=== PATIENT | male | born 1985 ===

== ENCOUNTER 2018-01-11 12:38 | Emergency (ER) | payer BC ==
[2018-01-11 13:05] VITALS: BP 101/60; PULSE 74; RESP 20; TEMP 98.2; O2SAT 100
--- NOTE | 2018-01-11 13:51 | C.PDOC ---
History Of Present Illness Pt c/o left facial weakness. Time Seen by Provider: 01/11/18 13:09 Chief Complaint (Nursing): Weakness/Neurological Deficit History Per: Patient Onset/Duration Of Symptoms: Days (2) Current Symptoms Are (Timing): Still Present Fall Associated With With Symptoms: No Severity: Moderate Recent travel outside of the [place]: Not to an Endemic Area Additional History Per: Prior Records - Symptoms Of CVA Associated Symptoms: denies: Impaired Speech, Seizure Activity, New Vision Deficit(Left), New Vision Deficit(Right), Decreased Ability To Walk, New Confusion Character Of Deficits: Left: Weakness, Face: Weakness Recent Aspirin Use: No Current Coumadin Use?: No Recent Head Trauma: No Past Medical History Reviewed: Historical Data, Nursing Documentation, Vital Signs Vital Signs: Last Vital Signs Temp 98.2 F 01/11/18 13:00 Pulse 74 01/11/18 13:00 Resp 20 01/11/18 13:00 BP 101/60 01/11/18 13:00 Pulse Ox 100 01/11/18 13:00 - Medical History PMH: No Chronic Diseases Surgical History: No Surg Hx Family History: States: Unknown Family Hx - Social History Hx Alcohol Use: No Hx Substance Use: No - Immunization History Hx Tetanus Toxoid Vaccination: No Hx Influenza Vaccination: No Hx Pneumococcal Vaccination: No Review Of Systems Except As Marked, All Systems Reviewed And Found Negative. Constitutional: Negative for: Fever, Weakness ENT: Negative for: Ear Pain, Ear Discharge, Throat Pain Cardiovascular: Negative for: Chest Pain Respiratory: Negative for: Shortness of Breath Gastrointestinal: Negative for: Vomiting, Abdominal Pain Musculoskeletal: Negative for: Neck Pain Skin: Negative for: Rash Neurological: Positive for: Weakness (left face). Negative for: Numbness, Incoordination, Change in Speech, Confusion, Seizures, Altered Mental Status, Dizziness Physical Exam - Physical Exam Appears: Non-toxic, No Acute Distress Skin: Normal Color, Warm, Dry, No Rash Head: Atraumatic, Normacephalic Eye(s): bilateral: PERRL, EOMI Ear(s): Bilateral: Normal Oral Mucosa: Moist, No Drooling, No Trismus Neck: Normal ROM, Supple Lymphatic: No Adenopathy Cardiovascular: Rhythm Regular Respiratory: Normal Breath Sounds, No Accessory Muscle Use Gastrointestinal/Abdominal: Soft, No Tenderness Extremity: Normal ROM Neurological/Psych: Oriented x3, Normal Speech, Normal Cognition, No Cerebellar Signs, Normal Motor, Normal Sensation Other Neurological Findings: Facial Palsy (left), No Forehead Sparing Extremity: Right: No Drift, Left: No Drift, Upper: No Drift, Lower: No Drift ED Course And Treatment O2 Sat by Pulse Oximetry: 100 Pulse Ox Interpretation: Normal Disposition Counseled Patient/Family Regarding: Diagnosis, Need For Followup, Rx Given - Disposition Referrals: Tristin Mensah MD [Staff Provider] - Disposition: HOME/ ROUTINE Disposition Time: 13:52 Condition: STABLE Additional Instructions: Follow up with a primary doctor or a Neurologist within 4-5 days for further evaluation and treatment, including to be checked for Lyme disease. Return to the ER if you develop numbness, weakness in arms or legs, fever, rash, worsening of symptoms or if you have any other concerns. Prescriptions: Dextran 70/Hypromellose [Artificials Tears Drops] 1 - 2 drop OS QID #1 bottle predniSONE [predniSONE Tab] 3 tab PO DAILY #15 tab Instructions: Melo's Palsy (DC) - Clinical Impression Clinical Impression: Left-sided Melo's palsy
== END 2018-01-11 14:05 | disposition home or self-care (01) ==
LOC: C.ER 12:38
DX: G51.0 Bell's palsy (principal)

== ENCOUNTER 2018-09-30 11:25 | Emergency (ER) | payer BC ==
[2018-09-30 11:43] VITALS: RESP 18; O2SAT 99
--- NOTE | 2018-09-30 12:36 | C.PDOC ---
History Of Present Illness 32 year old male presents to the emergency department with complaints of dizziness which is described as the room spinning and is associated with nausea and vomiting since this morning. Patient states that he has not experienced such symptoms before. He denies trauma, vision changes, numbness or weakness, and abdominal pain. Time Seen by Provider: 09/30/18 12:07 Chief Complaint (Nursing): Headache History Per: Patient History/Exam Limitations: no limitations Onset/Duration Of Symptoms: Hrs Current Symptoms Are (Timing): Still Present Associated Symptoms: Blurred Vision, Nausea, Vomiting Recent travel outside of the [place]: No Past Medical History Reviewed: Historical Data, Nursing Documentation, Vital Signs Vital Signs: Last Vital Signs Temp 98.4 F 09/30/18 11:35 Pulse 52 L 09/30/18 11:35 Resp 18 09/30/18 11:35 BP 108/71 09/30/18 11:35 Pulse Ox 99 09/30/18 11:35 - Medical History PMH: No Chronic Diseases Surgical History: No Surg Hx Family History: States: Unknown Family Hx - Social History Hx Alcohol Use: No Hx Substance Use: No - Immunization History Hx Tetanus Toxoid Vaccination: No Hx Influenza Vaccination: No Hx Pneumococcal Vaccination: No Review Of Systems Except As Marked, All Systems Reviewed And Found Negative. Constitutional: Negative for: Fever, Chills Eyes: Positive for: Vision Change ENT: Negative for: Ear Pain Cardiovascular: Negative for: Chest Pain Gastrointestinal: Positive for: Nausea, Vomiting. Negative for: Abdominal Pain Neurological: Positive for: Headache, Dizziness. Negative for: Weakness, Numbness Physical Exam - Physical Exam Appears: Non-toxic, No Acute Distress Skin: Warm, Dry, No Rash Head: Atraumatic, Normacephalic Eye(s): bilateral: Normal Inspection, PERRL, EOMI Ear(s): Bilateral: Normal Nose: Normal Throat: No Erythema, No Exudate Neck: Normal, Supple Chest: Symmetrical, No Tenderness Cardiovascular: Rhythm Regular, No Murmur Respiratory: Normal Breath Sounds, No Rales, No Rhonchi, No Wheezing Gastrointestinal/Abdominal: Soft, No Tenderness Extremity: Normal ROM (all extremities), No Swelling Neurological/Psych: Oriented x3, Normal Speech, Normal Cognition, Normal Motor Gait: Steady ED Course And Treatment O2 Sat by Pulse Oximetry: 99 (RA) Pulse Ox Interpretation: Normal Progress Note: Plan: Antivert 25mg PO Medical Decision Making Medical Decision Making: On re-exam, the patient reports improvement of symptoms. Lungs are CTA, heart is RRR, abdomen is soft, non-tender and tolerating PO well. PT is ambulatory in the ED with steady gait. Follow up with the medical doctor within 1-2 days. Return if worsened. Disposition - Disposition Referrals: [facility] [Outside] Disposition: HOME/ ROUTINE Disposition Time: 13:34 Condition: STABLE Additional Instructions: Follow up with the medical doctor within 1-2 days. Return if worsened. 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 - Scribe Statement The provider has reviewed the documentation as recorded by the Scribe (Segundo Ozuna) All medical record entries made by the Scribe were at my direction and personally dictated by me. I have reviewed the chart and agree that the record accurately reflects my personal performance of the history, physical exam, medical decision making, and the department course for this patient. I have also personally directed, reviewed, and agree with the discharge instructions and disposition.
[2018-09-30 13:53] VITALS: BP 114/66; PULSE 56; TEMP 98
== END 2018-09-30 13:53 | disposition home or self-care (01) ==
LOC: C.ER 11:25
DX: R42 Dizziness and giddiness (principal)